=== PATIENT | male | born 1990 | race Two or more races ===

== ENCOUNTER 2023-10-31 22:43 | Emergency (ER) | payer OTHER ==
[~2023-10-31] VITALS: Ht 182.9 cm; Wt 114.0 kg
[2023-11-01] MEDS: QUETIAPINE FUMARATE 50MG TABLET PO SCH ×2 (00:08→14:49)
[2023-11-01 00:19] LABS: BASOPHILS % 0.7 % (0.0-2.0); EOSINOPHILS % 0.8 % (0.0-5.0); HEMATOCRIT. 47.1 % (42.0-52.0); LYMPHOCYTES % 16.5 % (20.0-50.0); MEAN CORPUSCULAR HEMOGLOBIN 30.4 pg (28.0-32.0); MEAN CORPUSCULAR HGB CONC 34.1 g/dL (31.0-37.0); MEAN CORPUSCULAR VOLUME 89.2 fL (80.0-94.0); MEAN PLATELET VOLUME 7.6 fl (7.4-10.4); MONOCYTES % 8.6 % (2.0-8.0); NEUTROPHILS % 73.4 % (40.0-76.0); PLATELET 336 x1000/uL (130-400); RED BLOOD CELL COUNT 5.28 mill/uL (4.7-6.1); RED CELL DISTRIBUTION WIDTH 12.9 % (11.6-14.6); WHITE BLOOD COUNT 12.1 x1000/uL (4.5-11.0)
[2023-11-01 00:29] LABS: CHLORIDE 103 mEq/L (98-107); POTASSIUM 3.7 mEq/L (3.5-5.1); SODIUM 136 mEq/L (136-145)
[2023-11-01 00:30] LABS: CARBON DIOXIDE 27 mEq/L (21-32)
[2023-11-01 00:35] LABS: CREATININE 0.9 mg/dL (0.6-1.3); GLUCOSE 100 mg/dL (70-105); UREA NITROGEN BLOOD 10 mg/dL (9-23)
[2023-11-01 00:37] LABS: ACETAMINOPHEN < 2 ug/mL (10-30)
[2023-11-01 01:11] LABS: ETHANOL BLOOD < 10 mg/dL (<10)
[2023-11-01 01:26] LABS: *AMPHETAMINES SCREEN URINE NEGATIVE (NEGATIVE); *BARBITURATES SCREEN URINE NEGATIVE (NEGATIVE); *BENZODIAZEPINES SCREEN URINE NEGATIVE (NEGATIVE); *COCAINE SCREEN URINE NEGATIVE (NEGATIVE); CANNABINOID URINE SCREEN PRESUMPTIVE POSITIVE (NEGATIVE); ECSTASY MDMA SCREEN URINE NEGATIVE (NEGATIVE); METHADONE URINE SCREEN NEGATIVE (NEGATIVE); OPIATES URINE SCREEN NEGATIVE (NEGATIVE); PHENCYCLIDINE URINE SCREEN NEGATIVE (NEGATIVE)
[2023-11-01 01:35] LABS: CLARITY URINE CLEAR (CLEAR); COLOR URINE YELLOW (YELLOW)
[2023-11-01 01:36] LABS: GLUCOSE URINE NEGATIVE (NEGATIVE); KETONES URINE NEGATIVE (NEGATIVE); LEUKOCYTE ESTERASE URINE NEGATIVE (NEGATIVE); NITRITE URINE NEGATIVE (NEGATIVE); OCCULT BLOOD URINE NEGATIVE (NEGATIVE); PROTEIN URINE NEGATIVE (NEGATIVE); UROBILINOGEN URINE 0.2 E.U./dL (0.2-1.0)
[2023-11-01 01:37] LABS: SPECIFIC GRAVITY URINE <1.005 (1.005-1.030)
[2023-11-01] MEDS: LORAZEPAM 2MG/ML INJ IM ONE ×3 (01:45→22:21)
[2023-11-01] MEDS: DIPHENHYDRAMINE 50MG/ML VIAL IM ONE (01:45)
[2023-11-01] MEDS: HALOPERIDOL LACTATE 5MG/ML VIAL IM ONE ×2 (01:45→22:21)
[2023-11-01] MEDS: LORAZEPAM 1MG TABLET PO ONE (14:49)
[2023-11-01] MEDS: DIPHENHYDRAMINE 50MG/ML VIAL IM PRN (22:22)
[2023-11-02] MEDS: HALOPERIDOL 5MG TABLET PO SCH (09:34)
[2023-11-02] MEDS: BENZTROPINE MESYLATE 0.5MG TABLET PO SCH (09:44)
[2023-11-02] MEDS: HALOPERIDOL LACTATE 5MG/ML VIAL IM ONE (20:45)
[2023-11-02] MEDS: DIPHENHYDRAMINE 50MG/ML VIAL IM ONE (20:45)
[2023-11-02] MEDS: LORAZEPAM 2MG/ML INJ IM ONE (20:45)
[2023-11-02 22:00] VITALS: O2SAT 100
[2023-11-04 09:49] VITALS: BP 123/74; PULSE 70; RESP 18; TEMP 36.89184; O2SAT 99
== END 2023-11-04 09:57 | disposition home or self-care (01) ==
LOC: ER 22:43
DX: F25.9 Schizoaffective disorder, unspecified (principal); R45.1 Restlessness and agitation; F12.90 Cannabis use, unspecified, uncomplicated; Z20.822 Contact with and (suspected) exposure to COVID-19
CPT/HCPCS: 80305; 80048; 81003; 80307; 80329; 80320; 85025; 36415; 99285; 99406; 87426; 96372 ×2; J1630 ×4; Z7610 ×2; J1200; J2060; G0480